=== PATIENT | male | born 1995 | race Caucasian/White ===

== ENCOUNTER 2019-08-18 01:50 | Emergency (ER) | payer SELFPAY ==
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
[2019-08-18 01:52] VITALS: BP 148/78; PULSE 93; RESP 24; TEMP 37.3; O2SAT 100
[2019-08-18 02:15] VITALS: BP 140/70; PULSE 89; RESP 22; O2SAT 99
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
[2019-08-18 02:30] VITALS: BP 131/63; PULSE 80; RESP 23; O2SAT 99
[2019-08-18] MEDS: TETANUS,DIPHTHERIA,AC PERTUSSIS ADULT (0.5 ML) BOOSTRIX IM (02:32)
[2019-08-18 02:41] VITALS: BP 131/63; PULSE 94; RESP 16; O2SAT 99
[2019-08-18 02:52] LABS: Basophils Percent Auto 0.2 % (0.2-1.2); Eosinophils Percent Auto 0.1 % (0-4.4); Hematocrit 45.7 % (42.0-52.0); Hemoglobin 15.4 g/dL (14.0-18.0); Immature Granulocyte Absolute 0.08 K/mm3 (0.00-0.031); Immature Granulocyte Percent A 0.4 % (0-0.5); Lymphocytes Absolute Auto 0.96 K/mm3 (0.9-3.2); Mean Corpuscular HGB Conc 33.7 g/dl (32-36); Mean Corpuscular Hemoglobin 30.9 pg (26-34); Mean Corpuscular Volume 91.6 fl (80-100); Mean Platelet Volume 10.3 fl (7.4-10.4); Monocytes Absolute Auto 1.4 K/mm3 (0.1-0.6); Monocytes Percent Auto 7.4 % (2.6-8.5); Neutrophils Absolute Auto 16.7 K/mm3 (1.3-6.7); Neutrophils Percent Auto 86.9 % (45.5-73.1); Platelet Count Result 262 k/mm3 (150-375); Red Blood Count 4.99 M/mm3 (4.6-6.20); Red Cell Distribution Width 12.4 % (11.5-14.5); White Blood Count 19.2 K/mm3 (4.5-10.0)
[2019-08-18 02:54] VITALS: PULSE 114; RESP 27
[2019-08-18 03:00] VITALS: BP 98/61; PULSE 100; PULSE 88; RESP 18; RESP 20; O2SAT 100; O2SAT 99
[2019-08-18 03:05] LABS: Ethanol < 10 mg/dL (<10)
[2019-08-18 03:09] LABS: Alanine Aminotransferase 17 U/L (4-50); Albumin Level 4.6 g/dL (3.5-5.1); Alkaline Phosphatase 65 U/L (38-126); Aspartate Amino Transferase 32 U/L (17-59); Bilirubin,Total 0.5 mg/dL (0.2-1.3); Blood Urea Nitrogen 16 mg/dL (9-20); Calcium 9.1 mg/dL (8.4-10.2); Carbon Dioxide 25 mmol/L (22-30); Chloride 104 mmol/L (98-107); Estimated Glomerular Filt Rate > 60; Glucose 101 mg/dL (75-110); Lipase 38 U/L (23-300); Sodium 137 mmol/L (137-145)
== END 2019-08-18 03:10 | disposition short-term general hospital (02) ==
PROVIDERS: Emergency Provider Emergency Medicine
DX: S01.511A Laceration without foreign body of lip, initial encounter (principal); S01.81XA Laceration without foreign body of other part of head, initial encounter; R10.9 Unspecified abdominal pain; S22.39XA Fracture of one rib, unspecified side, initial encounter for closed fracture; S02.5XXA Fracture of tooth (traumatic), initial encounter for closed fracture; Z23 Encounter for immunization; V86.56XA Driver of dirt bike or motor/cross bike injured in nontraffic accident, initial encounter
CPT/HCPCS: 36415; 71045; 72170; 80053; 80307; 83690; 85025; 86850; 86900; 86901; 90471; 90715; 96374; 99285; J3010; L0140

== ENCOUNTER 2022-07-23 07:52 | Emergency (ER) | payer OTHER, SELFPAY ==
--- NOTE | ~2022-07-23 | XR_ITS ---
Right Hand Technique: PA, oblique, and lateral views were obtained. Clinical History: Pain and swelling Findings: There is a traumatic, transverse fracture through the midshaft of the third metacarpal, carolyn omar displaced by one half shaft width, with dorsal angulation. No other fracture or dislocation see n. Joint spaces are preserved. Soft tissues are unremarkable. Impression: Traumatic, transverse fracture midshaft of the third metacarpal, with mild displacement and dorsal an gulation. Reviewed, dictated and finalized at location M. Impression: Traumatic, transverse fracture midshaft of the third metacarpal, with mild disp lacement and dorsal angulation.
[2022-07-23 08:01] VITALS: BP 127/81; PULSE 89; RESP 18; TEMP 36.6; O2SAT 97
[2022-07-23] MEDS: ONDANSETRON HCL ODT 4 MG TABLET PO (08:22)
[2022-07-23] MEDS: IBUPROFEN 400 MG TABLET PO (08:22)
[2022-07-23] MEDS: oxyCODONE/ACETAMINOPHEN (*CRX) 5-325 MG TABLET 1 TABLET PO (08:22)
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
[2022-07-23 11:07] VITALS: BP 124/68; PULSE 78; RESP 16; TEMP 36.9; O2SAT 100
== END 2022-07-23 11:09 | disposition home or self-care (01) ==
PROVIDERS: Emergency Provider General Practice
DX: S62.322A Displaced fracture of shaft of third metacarpal bone, right hand, initial encounter for closed fracture (principal); W22.09XA Striking against other stationary object, initial encounter
CPT/HCPCS: 29125; 73130; 99284; A9270

== ENCOUNTER 2022-07-25 01:39 | Day surgery (SDC) | payer OTHER, SELFPAY ==
--- NOTE | 2022-07-24 17:06 | PC.NURSE ---
Report to the Outpatient Waiting Room, entrance under the green pavilion located off [facility], at time 1115 on date 07/25/22. Planned Procedure Time: 1315. Time changes happen often and if your time is changed the preop area will call you the afternoon before. - You and your visitor will be asked to self-screen and do not enter if you have any COVID symptoms. - A mask is optional within the hospital at this time. Patients may have clear liquids (water, carbonated beverages, clear teas, apple juice) until 3 hours prior to surgery with a maximum of 20 ounces. 1015 - No food from midnight until time of surgery - Infants may have breast milk until 4 hours before surgery, formula 6 hours prior to surgery. - Children will be allowed to drink immediately following surgery. If applicable, please bring a bottle or sippy cup to assist with drinking. Juice, water, soda, and popsicles are readily available. For infants on formula, please bring formula the day of surgery. Pacifiers are allowed. Take the following medications with a SIP of water the morning of surgery: percocet DO NOT STOP ANY OF YOUR OTHER PRESCRIPTION MEDICATIONS PRIOR TO SURGERY ?EXCEPT THE FOLLOWING Medications to discontinue per physician n/a Date to take last dose n/a Please no make-up, nail thai, hairspray, perfume, deodorant, or body powder the day of surgery. No jewelry (including any body piercings) or valuables the day of surgery, leave them at home. Please take a shower or bath the night before, or the morning of, surgery with an antibacterial soap. Wear comfortable, loose fitting clothing. Children are encouraged to wear pajamas. - Jewelry must be removed prior to entering the operating room. Rings and piercings that are not removed may be cut off. - The hospital will not accept responsibility for valuables. - Please leave all valuables, including medications, at home the day of surgery. If you are going home after surgery, a licensed locomotive driver must drive you home. - NO public transportation without another adult if you receive anesthesia. - We recommend that an adult stay with you for 24 hours following discharge. - We also recommend that you do not drive, make important decision, drink alcoholic beverages, or take any drugs that were not prescribed by your health care provider for at least 24 hours after your discharge time. For Pediatric surgeries, we recommend two adults accompany the child home. Follow any additional instructions given to you from your surgeon. If you or anyone in your household have experienced Covid symptoms in the past week, please notify your surgeon or the nurse liaison at the phone number below for possible testing. Telephone instructions given to Solomon Mi and asked if any additional questions and then verbalized understanding. Patient advised to call surgeon office or pre surgery nurse liaison [phone] if any additional questions.
[2022-07-24 17:12] VITALS: BMI 25.8
[2022-07-25] VITALS (9 sets, daily range): BP systolic 93–121; BP diastolic 43–79; PULSE 55–78; RESP 11–17; TEMP 36.1–36.9; O2SAT 99–100; BMI 24.8
--- NOTE | ~2022-07-25 | XR_ITS ---
EXAMINATION: XR surgery orthopedic DATE: 07/25/2022 15:09 INDICATION: Right hand third metacarpal fracture. TECHNIQUE: 3 intraoperative fluoroscopic views of right hand were obtained. I was not present. Fluoro scopy exposure time was 1 minute 39 seconds. COMPARISON: Right hand radiographs 07/23/2022 FINDINGS: There is a transverse fracture of diaphysis of third metacarpal in near-anatomic alignment with intramedullary pin. Joint spaces are normal. IMPRESSION: 1. Transverse fracture of diaphysis of third metacarpal in near-anatomic alignment with pin fixation. Reviewed, dictated and finalized at location A. IMPRESSION: 1. Transverse fracture of diaphysis of third metacarpal in near-anatomic alignm ent with pin fixation.
--- NOTE | 2022-07-25 11:29 | PM.IMHP ---
H&P: HPI History of Present Illness Date/Time: 07/25/22 11:29 Chief Complaint: Closed moderately displaced midshaft transverse fracture of the right 3rd metacarpal Narrative: Solomon is a 27-year-old [id number] male to presented yesterday to the office with a closed fracture. He came in a splint provided by the ER where he was seen the day before. He has given a variable history on the cause and location of this fracture event.. He was examined in the office and wished to have his hand functional again as soon as possible. 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 We discussed various treatment options for this type of fracture and have selected the intramedullary C-wire fixation under general anesthesia. He is aware that a 2nd incision may be needed to coapted the fragments. He is also aware of other possible complications such as some degree of malalignment, infection, pain, stiffness and others and he would like to proceed as soon as possible. Review of Systems Review of Systems: All systems reviewed & are unremarkable except as noted in HPI and below PMFSH Past Medical History Medical History No pertinent past medical history Surgical History Surgical History No pertinent past surgical history Social History Social History Smoking packs per day: 0.5 Smoking cigarettes per day: 10.0 Years smoked: 7 Smoking pack-years: 3.50 Smoking status: Current every day smoker Tobacco type: cigarettes and e-cigarettes/vaping Alcohol intake: current Drinks per week: 3 Substance use type: crack/cocaine Other substance usage details: On the weekends Living arrangements: with family Meds Home Medications and Allergies Home Medications Medication Instructions Recorded Confirmed Type oxycodone-acetaminophen 5 mg-325 1 tablet PO Q6H PRN pain #14 tabs 07/23/22 07/24/22 Rx mg tablet (Percocet) Allergies Allergy/AdvReac Type Severity Reaction Status Date / Time No Known Allergies Allergy Verified 07/25/22 12:26 Exam Narrative: . He is fully alert shows no evidence of additional health issues the patient's right hand is moderately swollen there are no lacerations no significant bruising. He has pain with range of motion. He reports no numbness skin color is normal. Assessment and Plan Assessment and plan (1) Fracture of third metacarpal bone of right hand: Qualifiers: Fracture type: closed Fracture alignment: displaced Code(s): S62.302A - Unspecified fracture of third metacarpal bone, right hand, initial encounter for closed fracture Status: Acute Plan Closed moderately displaced mid shaft transverse fracture of the right 3rd metacarpal Closed possible open reduction internal C-wire fixation of the right 3rd metacarpal fracture
[2022-07-25] MEDS: LACTATED RINGERS 1,000 ML 30 ML IV CONT ×2 (12:30→15:24)
--- NOTE | 2022-07-25 12:35 | WPDHPUPDATE1 ---
History and Physical Update Update Date/Time: 07/25/22 12:35 History and Physical has been reviewed, including an updated exam of the patient. There are NO changes in the patient's condition. Risks, benefits, and alternatives have been discussed and questions answered. Patient agrees to proceed with procedure.
--- NOTE | 2022-07-25 13:12 | WPDANESEPPF ---
Anes - Initial Pre Proc Eval Procedure: Operation Date: 07/25/22 13:15 Proposed Procedures p Closed Possible Open Reduction Internal Fixation C-Wires of Right Third Metacarpal - Humphrey Moura MD Date/Time: 07/25/22 13:12 Surgeon: Humphrey Moura MD Pre Op Diagnosis: right third metacarpal fracture Patient Data Age: 27 Gender: M Height: 1.65 m Weight: 67.7 kg Last Vital Signs Temp 98.5 F 07/25/22 11:55 Pulse 78 07/25/22 11:55 Resp 16 07/25/22 11:55 BP 121/79 07/25/22 11:55 Pulse Ox 99 07/25/22 11:55 O2 Del Method Room Air 07/25/22 11:55 Allergies Allergy/AdvReac Type Severity Reaction Status Date / Time No Known Allergies Allergy Verified 07/25/22 12:26 Home Medications Medication Instructions Recorded Confirmed Type oxycodone-acetaminophen 5 mg-325 1 tablet PO Q6H PRN pain #14 tabs 07/23/22 07/24/22 Rx mg tablet (Percocet) Patient hx anesthesia problems: none Family hx anesthesia problems: none Results Review: All pre-operative results and documents have been reviewed as part of the pre-operative evaluation. [facility] Past Medical History Medical History No pertinent past medical history Surgical History Surgical History No pertinent past surgical history Social History Social History Smoking packs per day: 0.5 Smoking cigarettes per day: 10.0 Years smoked: 7 Smoking pack-years: 3.50 Smoking status: Current every day smoker Tobacco type: cigarettes and e-cigarettes/vaping Alcohol intake: current Drinks per week: 3 Substance use type: crack/cocaine Other substance usage details: On the weekends Living arrangements: with family Anes - Eval Final PreProcedure Day of Procedure 07/25/22 13:12 Patient weight: normal Heart: regular rate and rhythm Lungs: clear to auscultation Airway: Mallampati scale class II Neurological: alert and oriented Last oral intake: >/= 8 hours ASA classification: II Emergent: no Anesthetic plan: proceed Anesthesia type and monitoring: general LMA and standard monitoring Results Review: All pre-operative results and documents have been reviewed as part of the pre-operative evaluation. Informed Consent: The patient's anesthetic plan and its attendant risks and benefits were discussed with the patient/family/POA. Questions were solicited and answers provided to the satisfaction of the patient/family/POA.
[2022-07-25] MEDS: ceFAZolin 2 GM/D5W 50 ML 2 GM/50 ML BAG IVPB (13:35)
[2022-07-25] MEDS: LIDO 1%/EPINEPHRINE 1:100,000 50 ML VIAL INFILTRATE (13:38)
[2022-07-25] MEDS: BUPivacaine HCL 0.5% PF 30 ML VIAL INFILTRATE (15:03)
--- NOTE | 2022-07-25 15:19 | W.PM.PROC2 ---
Procedure Note - Detailed Date of Procedure 07/25/22 Pre-op Diagnosis right third metacarpal fracture Post-op Diagnosis Same Procedure Performed Closed reduction and internal K-wire fixation of the right 3rd metacarpal fracture. Surgeon Humphrey Moura MD Hospital Receptionist [facility] Anesthesia General Description of Procedure The patient had a splint on in the holding area. The middle finger was marked with his consent and he was taken to the operating room where he was placed supine on the operating table. The splint and bandage were removed. He was given general anesthesia. The right upper extremity was prepped and draped in usual fashion. Time-out was held and confirmed. The C-arm account review specialist was brought in to identify the fracture, the orientation of the metacarpal and the base for access of our fixation wire. Skin markings were made. These areas were infiltrated with 1% lidocaine with epinephrine.. The tourniquet was not utilized. A small incision was made over the dorsal base of the 3rd metacarpal. Blunt dissection was carried to the periosteum. Local extensor tendons were identified. The access fenestration was made in the dorsal cortex with the 0.062 in C-wire. The 1.6 in blunt end K-wire was modified with the bend at the tip and slight bending in the shaft. This was fitted to the drill and passed into the medullary canal. It was advanced under fluoroscopy. The fracture was distracted with pull on the middle finger. The appropriate positioning of the distal fragment was achieved and the pin advanced across the fracture line into the distal fragment. Compression of the 2 fragments and further advancement of the pin under fluoro provided excellent reduction and stabilization.. The pin was the bent sharply at the entry point and cut. A plastic sleeve was applied over that. We were not able to rotate this under the tendons or to lie flat under the skin. It was left vertical and the wound closed over the top with interrupted 4-0 nylon. A small absorbent bandage was applied. The patient had been given Ancef preoperatively. No splint was applied 8 milliliter of 0.25% Marcaine were infiltrated over the 3rd metacarpal. He was discharged from the operating room in stable condition. Estimated Blood Loss 0 Tourniquet Time 0 Complications No immediate complications Condition Stable Disposition PACU
== END 2022-07-25 16:40 | disposition home or self-care (01) ==
PROVIDERS: Visit Provider Plastic Surgery
PROC: (CPT 26615; principal; 2022-07-25 13:15)
DX: S62.322A Displaced fracture of shaft of third metacarpal bone, right hand, initial encounter for closed fracture (principal); W22.09XA Striking against other stationary object, initial encounter; F17.210 Nicotine dependence, cigarettes, uncomplicated; F17.290 Nicotine dependence, other tobacco product, uncomplicated; F14.90 Cocaine use, unspecified, uncomplicated
CPT/HCPCS: 26608; 99199; A9270; C1713; J0690; J1100; J2250; J2405; J2704; J3010; J7120

== ENCOUNTER 2022-08-12 10:56 | Outpatient (CLI) | payer OTHER, SELFPAY ==
--- NOTE | ~2022-08-12 | XR_ITS ---
Right Hand Technique: PA, oblique, and lateral views were obtained. Clinical History: Status post internal fixation of third metacarpal fracture COMPARISON: 07/23/2022 Findings: Patient is status post interval placement of orthopedic pin transfixing fracture through th e midshaft of the third metacarpal. Osseous alignment is significantly improved following internal fi xation. There is mild callus formation. Remaining osseous structures are unremarkable. Joint spaces a re preserved. There is worsening dorsal soft tissue swelling as compared to prior exam. Impression: Status post internal fixation of third metacarpal shaft fracture since prior exam. There is improved osseous alignment with early callus formation. Worsened dorsal soft tissue swelling as compared to prior exam. Reviewed, dictated and finalized at location . Impression: Status post internal fixation of third metacarpal shaft fracture since prior ex am. There is improved osseous alignment with early callus formation. Worsened dorsal soft tissue swelling as compared to prior exam.
== END 2022-08-12 10:57 | disposition home or self-care (01) ==
PROVIDERS: Visit Provider Plastic Surgery
DX: S62.323A Displaced fracture of shaft of third metacarpal bone, left hand, initial encounter for closed fracture (principal); T14.90XA Injury, unspecified, initial encounter
CPT/HCPCS: 73130

== ENCOUNTER 2022-08-14 01:35 | Day surgery (SDC) | payer OTHER, SELFPAY ==
--- NOTE | 2022-08-12 15:34 | PC.NURSE ---
Report to the Outpatient Waiting Room, entrance under the green pavilion located off [facility], at time 0900 on date ___08/14/22____. Planned Procedure Time: _1100 . Time changes happen often and if your time is changed the preop area will call you the afternoon before. - You and your visitor will be asked to self-screen and do not enter if you have any COVID symptoms. - A mask is optional within the hospital at this time. Patients may have clear liquids (water, carbonated beverages, clear teas, apple juice) until 3 hours prior to surgery with a maximum of 20 ounces. - No food from midnight until time of surgery - Infants may have breast milk until 4 hours before surgery, infant formula 6 hours prior to surgery. - Children will be allowed to drink immediately following surgery. If applicable, please bring a bottle or sippy cup to assist with drinking. Juice, water, soda, and popsicles are readily available. For infants on formula, please bring formula the day of surgery. Pacifiers are allowed. Take the following medications with a SIP of water the morning of surgery: AMOXICILLIN DO NOT STOP ANY OF YOUR OTHER PRESCRIPTION MEDICATIONS PRIOR TO SURGERY ?EXCEPT THE FOLLOWING Medications to discontinue per physician NONE Date to take last dose Please no make-up, nail occitan, hairspray, perfume, deodorant, or body powder the day of surgery. No jewelry (including any body piercings) or valuables the day of surgery, leave them at home. Please take a shower or bath the night before, or the morning of, surgery with an antibacterial soap. Wear comfortable, loose fitting clothing. Children are encouraged to wear pajamas. - Jewelry must be removed prior to entering the operating room. Rings and piercings that are not removed may be cut off. - The hospital will not accept responsibility for valuables. - Please leave all valuables, including medications, at home the day of surgery. If you are going home after surgery, a licensed septic pump truck driver must drive you home. - NO public transportation without another adult if you receive anesthesia. - We recommend that an adult stay with you for 24 hours following discharge. - We also recommend that you do not drive, make important decision, drink alcoholic beverages, or take any drugs that were not prescribed by your health care provider for at least 24 hours after your discharge time. For Pediatric surgeries, we recommend two adults accompany the child home. Follow any additional instructions given to you from your surgeon. If you or anyone in your household have experienced Covid symptoms in the past week, please notify your surgeon or the nurse liaison at the phone number below for possible testing. Telephone instructions given to ___PT and asked if any additional questions and then verbalized understanding. Patient advised to call surgeon office or pre surgery nurse liaison [phone] if any additional questions.
[2022-08-12 15:35] VITALS: BMI 25.0
--- NOTE | 2022-08-13 14:44 | WPDANESEPPF ---
Anes - Initial Pre Proc Eval Procedure: Operation Date: 08/14/22 11:00 Proposed Procedures p Planned Removal of Fixation Pin Right Third Metacarpal - Humphrey Moura MD Date/Time: 08/13/22 14:44 Surgeon: Humphrey Moura MD Pre Op Diagnosis: right third metacarpal fx s/p post reduction Patient Data Age: 27 Gender: M Height: 1.68 m Weight: 70.35 kg Allergies Allergy/AdvReac Type Severity Reaction Status Date / Time No Known Allergies Allergy Verified 08/14/22 09:50 Home Medications Medication Instructions Recorded Confirmed Type oxycodone-acetaminophen 5 mg-325 1 tablet PO Q6H PRN pain #14 tabs 07/23/22 08/14/22 Rx mg tablet (Percocet) amoxicillin 875 mg-potassium 1 tablet PO Q12H 08/12/22 08/14/22 History clavulanate 125 mg tablet Patient hx anesthesia problems: none Family hx anesthesia problems: none Results Review: All pre-operative results and documents have been reviewed as part of the pre-operative evaluation. REPLACED BY [facility] Past Medical History Medical History No pertinent past medical history Surgical History Surgical History No pertinent past surgical history Social History Social History Smoking packs per day: 0.5 Smoking cigarettes per day: 10.0 Years smoked: 7 Smoking pack-years: 3.50 Smoking status: Current every day smoker Tobacco type: cigarettes and e-cigarettes/vaping Alcohol intake: current Drinks per week: 3 Substance use: current Substance use type: crack/cocaine Other substance usage details: On the weekends Last use: JUNE 2022 Living arrangements: with family Spiritual care concerns: No Anes - Eval Final PreProcedure Day of Procedure 08/13/22 14:44 Patient weight: normal Heart: regular rate and rhythm Lungs: clear to auscultation and normal air movement Airway: Mallampati scale class II Neurological: alert and oriented Last oral intake: >/= 8 hours ASA classification: II Emergent: no Anesthetic plan: proceed Anesthesia type and monitoring: general GIVS and standard monitoring Results Review: All pre-operative results and documents have been reviewed as part of the pre-operative evaluation. Informed Consent: The patient's anesthetic plan and its attendant risks and benefits were discussed with the patient/family/POA. Questions were solicited and answers provided to the satisfaction of the patient/family/POA.
--- NOTE | ~2022-08-14 | XR_ITS ---
EXAMINATION: XR surgery orthopedic DATE: 08/14/2022 13:16 INDICATION: Fixation pin removal at the right hand TECHNIQUE: 2 fluoroscopic images of the right hand were obtained during procedure performed by Dr. Quintero. Radiologist was not present for the imaging or procedure. The amount of fluoroscopy time used du ring this procedure was 0.1 minutes. COMPARISON: 07/25/2022 FINDINGS: The previously placed fixation pin extending along the third metacarpal has been removed with no resi dual retained foreign bodies identified. There is subtle calcification about the previously discernib le mid diaphyseal fracture of the third metacarpal with no residual lucency evident consistent with i nterval healing. Alignment remains normal. No other fractures identified. Joint spaces are normal. IMPRESSION: 1. No residual foreign bodies identified post pin fixation removal at a healing third metacarpal frac ture which remains in normal alignment. Reviewed, dictated and finalized at location A. IMPRESSION: 1. No residual foreign bodies identified post pin fixation removal at a healing third metacarpal fracture which remains in normal alignment.
[2022-08-14 09:25] VITALS: BP 116/61; PULSE 73; RESP 18; TEMP 36.4; O2SAT 99
[2022-08-14] MEDS: LACTATED RINGERS 1,000 ML 30 ML IV CONT ×2 (09:41→13:14)
--- NOTE | 2022-08-14 11:36 | WPDHPUPDATE1 ---
History and Physical Update Update Date/Time: 08/14/22 11:36 History and Physical has been reviewed, including an updated exam of the patient. There are NO changes in the patient's condition. Risks, benefits, and alternatives have been discussed and questions answered. Patient agrees to proceed with procedure.
--- NOTE | 2022-08-14 11:54 | SUR.PREOP ---
PT INFORMED OF SURGERY TIME DELAY UPON ARRIVAL, UPDATED NOW OF SURGERY TIME DELAY, DENIES NEEDS.
[2022-08-14] MEDS: ceFAZolin 2 GM/D5W 50 ML 2 GM/50 ML BAG IVPB (12:36)
[2022-08-14] MEDS: LIDO 1%/EPINEPHRINE 1:100,000 50 ML VIAL 7 ML INFILTRATE (13:03)
[2022-08-14 13:13] VITALS: BP 101/43; PULSE 64; RESP 14; O2SAT 97
--- NOTE | 2022-08-14 13:16 | PM.OP ---
Procedure Note - Brief Procedure Note - Brief Date of procedure: 08/14/22 right third metacarpal fx s/p post reduction Post-op diagnosis: Same Procedure performed: Planned removal of fixation device from healed right 3rd metacarpal. Surgeon: Humphrey Moura MD Anesthesia: MAC
[2022-08-14 13:43] VITALS: BP 128/72; PULSE 69; RESP 16; O2SAT 97
--- NOTE | 2022-08-14 20:07 | W.PM.PROC2 ---
Procedure Note - Detailed Date of Procedure 08/14/22 Pre-op Diagnosis right third metacarpal fx s/p post reduction Post-op Diagnosis Same Procedure Performed Planned removal of C-wire fixation device from the right 3rd metacarpal Surgeon Humphrey Moura MD Anesthesia MAC Indications Healed fracture Findings Healed fracture. Description of Procedure The site was marked on the patient's right dorsal hand in the holding area. He was then taken to the operating room was placed supine on the operating table. He was given IV sedation and 2 g of Ancef. The extremity was prepped and draped in usual fashion. The tourniquet was utilized but was not fully exsanguinated. The patient has had an open wound at the proximal end of the pin site. There is no erythema. The pin is not exposed. The pin has a plastic cap on the proximal and. This site has been irritated however and we found some hypertrophic granulation tissue during the procedure. A culture was sent for aerobes. The rubber cap was removed easily and the pin was removed easily. Some of the granulation tissue was trimmed out. The site was irrigated with about 1 L of saline. C-arm images confirmed the healed fracture. The wound margins were trimmed out with a 15 blade and the wound was closed with interrupted 4-0 nylon suture. The small bandage with Newton wrap was applied. The patient was discharged in stable condition from the operating room with instructions in wound care and follow-up. He was given a paper script for [employer] 5/325 6. Estimated Blood Loss 2 Drains No Packing No Pathology Yes Complications No immediate complications Condition Stable Disposition Same day
== END 2022-08-14 13:57 | disposition home or self-care (01) ==
PROVIDERS: Visit Provider Plastic Surgery
PROC: (CPT 20694; principal; 2022-08-14 11:00)
DX: Z47.2 Encounter for removal of internal fixation device (principal); S62.322D Displaced fracture of shaft of third metacarpal bone, right hand, subsequent encounter for fracture with routine healing; W22.8XXD Striking against or struck by other objects, subsequent encounter; F17.210 Nicotine dependence, cigarettes, uncomplicated; F17.290 Nicotine dependence, other tobacco product, uncomplicated; F14.90 Cocaine use, unspecified, uncomplicated
CPT/HCPCS: 20680; 87070; 87205; 99199; J0690; J2250; J2704; J3010; J7120